=== PATIENT | female | born 1950 | race Asian ===

== ENCOUNTER 2016-07-29 13:39 | Outpatient (CLI) | payer OTHER | END 2016-07-29 18:17 | disposition home or self-care (01) | LOC: SMA 13:39 | PROVIDERS: ATTEND Specialist | DX: Z12.31 Encounter for screening mammogram for malignant neoplasm of breast (principal); N95.0 Postmenopausal bleeding | CPT/HCPCS: 76830; 76857; 77067; G0202 ==

== ENCOUNTER 2016-08-19 06:00 | Day surgery (SDC) | payer OTHER ==
[2016-08-15 15:56] LABS: ALBUMIN 4.2 g/dL (3.4-4.8); CREATININE 0.71 mg/dL (0.55-1.30); POTASSIUM 3.4 mmol/L (3.5-5.1); TOTAL BILIRUBIN 0.5 mg/dL (0.0-1.0); TOTAL PROTEIN, SERUM 8.4 g/dL (6.4-8.3)
[2016-08-15 16:01] LABS: BILIRUBIN,URINE NEGATIVE (NEGATIVE); BLOOD, URINE 1+ (NEGATIVE); CLARITY/URINE HAZY (CLEAR); COLOR,URINE YELLOW (YELLOW); GLUCOSE,URINE NEGATIVE (NEGATIVE); KETONES,URINE NEGATIVE (NEGATIVE); LEUKOCYTE ESTERASE ,URINE NEGATIVE (NEGATIVE); NITRITE, URINE NEGATIVE (NEGATIVE); PROTEIN URINE NEGATIVE (NEGATIVE)
[2016-08-15 16:03] LABS: BASOPHILS # (AUTO) 0.1 K/uL (0.0-0.2); EOSINOPHILS # (AUTO) 0.3 K/uL (0.0-0.4); EOSINOPHILS % (AUTO) 3.5 % (0.0-4.0); HEMATOCRIT 42.3 % (36-48); LYMPHOCYTES # (AUTO) 3.6 K/uL (1.0-5.5); LYMPHOCYTES % (AUTO) 42.7 % (20.5-51.5); MEAN CORPUSCULAR HEMOGLOBIN 31 pg (27-31); MEAN CORPUSCULAR HGB CONC 33 % (32-36); MEAN CORPUSCULAR VOLUME 94 fL (79.0-98.0); MONOCYTES # (AUTO) 0.6 K/uL (0.0-1.0); MONOCYTES % (AUTO) 6.9 % (1.7-9.3); NEUTROPHILS # (AUTO) 3.7 K/uL (1.8-7.7); NEUTROPHILS % (AUTO) 45.9 % (40.0-70.0); PLATELET COUNT (AUTO) 329 K/uL (130-430); RED BLOOD CELL COUNT(AUTO) 4.53 MIL/uL (4.2-6.2); RED CELL DISTRIBUTION WIDTH 13.1 % (9.0-15.0); WHITE BLOOD COUNT (AUTO) 8.3 K/uL (4.8-10.8)
[2016-08-15 16:20] LABS: BACTERIA,URINE FEW /HPF (None Seen); MUCUS,URINE None Seen /LPF (None Seen); URINE AMORPHOUS PHOSPHATES 3+ /HPF (None Seen); WBC,URINE NONE SEEN /HPF (0-3)
[~2016-08-19] VITALS: Ht 154.9 cm; Wt 48.5 kg
[2016-08-19] MEDS ORDERED: CEFAZOLIN SOD 1 GM/ ISO 50 ML PREMIX IV ONE (07:15)
[2016-08-19] MEDS ORDERED: LR 1,000 ML IV ONE (08:08)
[2016-08-19] MEDS ORDERED: ONDANSETRON HCL 4 MG/2 ML VIAL IVP PRN ×2 (08:15)
[2016-08-19] MEDS ORDERED: ePHEDrine sulfate 50 MG/ML VIAL IVP PRN (08:15)
[2016-08-19] MEDS ORDERED: NALBUPHINE HCL 10 MG/ML AMP IVP PRN (08:15)
[2016-08-19] MEDS ORDERED: fentaNYL CITRATE/PF 100 MCG/2 ML AMP IVP PRN (08:15)
[2016-08-19] MEDS ORDERED: NALOXONE HCL 0.4 MG/ML AMP (NARCAN) IVP PRN (08:15)
[2016-08-19] MEDS ORDERED: DIPHENHYDRAMINE INJ 50 MG/ML VIAL IVP PRN (08:15)
[2016-08-19 10:06] VITALS: BP_SYST 143
[2016-08-19] MEDS ORDERED: LR 1,000 ML IV.SOLN IV ONE (14:00)
[2016-08-19] MEDS ORDERED: PROPOFOL 200MG/ 20ML VIAL (DIPRIVAN) IV ONE (14:00)
[2016-08-19] MEDS ORDERED: fentaNYL CITRATE/PF 100 MCG/2 ML AMP ONE (14:00)
[2016-08-19] MEDS ORDERED: DEXAMETHASONE SOD PHOSPHATE 4 MG/ML VIAL ONE (14:00)
[2016-08-19] MEDS ORDERED: METOCLOPRAMIDE HCL 10 MG/2 ML VIAL ONE (14:00)
[2016-08-19] MEDS ORDERED: CEFAZOLIN 1 GM IVPB PREMIX 50 ML IV ONE (14:00)
[2016-08-19] MEDS ORDERED: NS IRRIG SOLN 1000 ML IR ONE (14:00)
[2016-08-19] MEDS ORDERED: SEVOFLURANE 15 MIN GAS INH ONE (14:00)
[2016-08-19] MEDS ORDERED: MIDAZOLAM HCL 5 MG/5 ML VIAL ONE (14:00)
== END 2016-08-19 10:45 | disposition home or self-care (01) ==
LOC: SMU 06:00 → SDS 06:00
PROVIDERS: ATTEND Specialist
DX: D25.9 Leiomyoma of uterus, unspecified (principal); I34.1 Nonrheumatic mitral (valve) prolapse; I10 Essential (primary) hypertension; F17.200 Nicotine dependence, unspecified, uncomplicated
CPT/HCPCS: 36415; 58561; 71020; 80053; 81000; 82306; 82465; 84703; 85025; 88305; C1819; J0690; J1100; J2250; J2704; J2765; J3010; J7120

== ENCOUNTER 2018-07-30 12:05 | Outpatient (CLI) | payer OTHER | END 2018-07-30 21:15 | disposition home or self-care (01) | LOC: SUS 12:05 | PROVIDERS: ATTEND Specialist | DX: R93.89 Abnormal findings on diagnostic imaging of other specified body structures (principal); N95.0 Postmenopausal bleeding | CPT/HCPCS: 76830-TC; 76857 ==

== ENCOUNTER 2018-09-22 06:00 | Day surgery (SDC) | payer OTHER ==
[2018-09-21 16:34] LABS: BILIRUBIN,URINE NEGATIVE (NEGATIVE); BLOOD, URINE NEGATIVE (NEGATIVE); CLARITY/URINE CLEAR (CLEAR); COLOR,URINE YELLOW (YELLOW); GLUCOSE,URINE NEGATIVE (NEGATIVE); KETONES,URINE NEGATIVE (NEGATIVE); LEUKOCYTE ESTERASE ,URINE NEGATIVE (NEGATIVE); NITRITE, URINE NEGATIVE (NEGATIVE); PH,URINE 5.5 (5.0-8.0); PROTEIN URINE NEGATIVE (NEGATIVE); UROBILINOGEN,URINE 0.2 (0.2-1.0)
[2018-09-21 16:37] LABS: BASOPHILS # (AUTO) 0.1 K/uL (0.0-0.2); BASOPHILS % (AUTO) 1.2 % (0.0-2.0); EOSINOPHILS # (AUTO) 0.5 K/uL (0.0-0.4); EOSINOPHILS % (AUTO) 5.4 % (0.0-4.0); HEMATOCRIT 40.7 % (36-48); HEMOGLOBIN 13.5 g/dL (12.0-16.0); LYMPHOCYTES # (AUTO) 2.4 K/uL (1.0-5.5); LYMPHOCYTES % (AUTO) 25.3 % (20.5-51.5); MEAN CORPUSCULAR HEMOGLOBIN 31 pg (27-31); MEAN CORPUSCULAR HGB CONC 33 % (32-36); MEAN CORPUSCULAR VOLUME 94 fL (79.0-98.0); MONOCYTES # (AUTO) 0.8 K/uL (0.0-1.0); MONOCYTES % (AUTO) 8.2 % (1.7-9.3); NEUTROPHILS # (AUTO) 5.7 K/uL (1.8-7.7); NEUTROPHILS % (AUTO) 59.9 % (40.0-70.0); PLATELET COUNT (AUTO) 315 K/uL (130-430); RED BLOOD CELL COUNT(AUTO) 4.35 MIL/uL (4.2-6.2); RED CELL DISTRIBUTION WIDTH 14.3 % (9.0-15.0); WHITE BLOOD COUNT (AUTO) 9.5 K/uL (4.8-10.8)
[~2018-09-22] VITALS: Ht 154.9 cm; Wt 54.9 kg
[2018-09-22] MEDS ORDERED: ONDANSETRON HCL 4 MG/2 ML VIAL IVP PRN ×2 (08:30→10:30)
[2018-09-22] MEDS ORDERED: fentaNYL CITRATE/PF 100 MCG/2 ML AMP IVP PRN ×2 (08:30)
[2018-09-22] MEDS ORDERED: ROPIVACAINE 0.2% (NAROPIN) PF SOLUTION 100 ML BOTTLE ONE (10:00)
[2018-09-22] MEDS ORDERED: GLYCOPYRROLATE 0.2 MG/ML VIAL ONE (10:00)
[2018-09-22] MEDS ORDERED: LIDOCAINE 2%, 20 ML MDV ONE (10:00)
[2018-09-22] MEDS ORDERED: DEXTROSE 50% JECT 50 ML DISP.SYRIN ONE (10:00)
[2018-09-22] MEDS ORDERED: NS 1000 ML IV.SOLN IV ONE (10:00)
[2018-09-22] MEDS ORDERED: PHENYLEPHRINE HCL 10 MG/ML VIAL (NEOSYNEPHRINE) ONE (10:00)
[2018-09-22] MEDS ORDERED: CEFAZOLIN 2 GM IVPB PREMIX 50 ML IV ONE (10:00)
[2018-09-22] MEDS ORDERED: ONDANSETRON HCL 4 MG/2 ML VIAL ONE (10:00)
[2018-09-22] MEDS ORDERED: fentaNYL CITRATE/PF 100 MCG/2 ML AMP ONE (10:00)
[2018-09-22] MEDS ORDERED: PROPOFOL 200MG/ 20ML VIAL (DIPRIVAN) IV ONE (10:00)
[2018-09-22] MEDS ORDERED: NS IRRIG SOLN 1000 ML IR ONE (10:00)
[2018-09-22] MEDS ORDERED: FUROSEMIDE 20 MG/2 ML VIAL ONE (10:00)
[2018-09-22] MEDS ORDERED: LR 1,000 ML IV.SOLN IV ONE (10:00)
[2018-09-22] MEDS ORDERED: SEVOFLURANE 15 MIN GAS INH ONE (10:00)
[2018-09-22] MEDS ORDERED: BUPIVACAINE /PF 0.25% 30 ML VIAL INJ ONE (10:00)
[2018-09-22] MEDS ORDERED: WATER FOR IRRIGATION,STERILE 1,000 ML IRRIG.SOLN IR ONE (10:00)
[2018-09-22] MEDS ORDERED: MIDAZOLAM HCL 5 MG/ML VIAL (VERSED) IV ONE (10:00)
[2018-09-22] MEDS ORDERED: BUPIVACAINE /PF 0.5% 30 ML VIAL ONE (10:00)
[2018-09-22] MEDS ORDERED: NEOSTIGMINE METHYLSULFATE 1 MG/ML, 10 ML VIAL ONE (10:00)
[2018-09-22] MEDS ORDERED: ROCURONIUM BROMIDE 10 MG/ML (ZEMURON) ONE (10:00)
[2018-09-22] MEDS ORDERED: LABETALOL 100 MG/ 20ML VIAL ONE (10:00)
[2018-09-22] MEDS ORDERED: hydrALAZINE HCL 20 MG/ML VIAL IVP ONE (10:15)
[2018-09-22] MEDS ORDERED: hydrALAZINE HCL 20 MG/ML VIAL ONE (10:17)
[2018-09-22] MEDS ORDERED: OXYCODONE/ACETAMINOPHEN 5-325 TABLET PO PRN ×2 (10:45)
[2018-09-22] MEDS ORDERED: HYDROcodone/ACETAMIN 5-325 MG TAB (NORCO/ VICODIN) PO PRN (10:45)
[2018-09-22 11:49] VITALS: BP_SYST 123
== END 2018-09-22 15:10 | disposition home or self-care (01) ==
LOC: SDS 06:00 → SMU 06:00 → SDS 15:10
PROVIDERS: ATTEND Specialist
DX: D25.1 Intramural leiomyoma of uterus (principal); D25.2 Subserosal leiomyoma of uterus; N83.299 Other ovarian cyst, unspecified side; Z88.0 Allergy status to penicillin; Z79.899 Other long term (current) drug therapy; Z98.890 Other specified postprocedural states
CPT/HCPCS: 36415; 58552; 71046; 81003; 85025; 88307; 93005; C1727; J0360; J0690; J1940; J2001; J2250; J2370; J2405; J2704; J2710; J2795; J3010; J3490 ×4; J7030; J7120; E0190

== ENCOUNTER 2020-02-22 19:56 | Emergency (ER) | payer OTHER, MEDICARE ==
[~2020-02-22] VITALS: Ht 154.9 cm; Wt 54.4 kg
--- NOTE | 2020-02-22 20:00 | NUR ---
Note gabriel in EDM - 02/22/20 at 2009 by [email or web address] [address]Patient to [facility] for evaluation. Side rails up.
--- NOTE | 2020-02-22 20:00 | NUR ---
Patient to ER bed 01 to gown for evaluation. Side rails up.
--- NOTE | 2020-02-22 20:03 | NUR ---
ER Dr. FLORES at bedside examining patient.
[2020-02-22 20:09] VITALS: BP_SYST 191
--- NOTE | 2020-02-22 20:10 | NUR ---
Pt c/o R knee pain/ swelling after twisting knee x today. Pt R knee appears to have swelling, pt cannot fully extend R knee. Rates pain /10.
[2020-02-22] MEDS ORDERED: KETOROLAC TROMETHAMINE 60 MG/2 ML VIAL IM ONE (20:15)
--- NOTE | 2020-02-22 20:30 | NUR ---
Xray at bedside.
--- NOTE | 2020-02-22 20:50 | NUR ---
Pt given knee immbolizer and crutches. Pt crutches adjusted to comfort level.
[2020-02-22 21:15] VITALS: BP_SYST 191
--- NOTE | 2020-02-22 21:15 | NUR ---
Patient given written and verbal discharge instructions and verbalizes understanding. ER MD discussed with patient the results and treatment provided. Patient in stable condition. ID arm band removed. Patient educated on pain management and to follow up with PMD. Opportunity for questions provided and answered. Medication side effect fact sheet provided.
== END 2020-02-22 21:15 | disposition home or self-care (01) ==
LOC: SED 19:56
DX: S83.8X1A Sprain of other specified parts of right knee, initial encounter (principal); Z88.8 Allergy status to other drugs, medicaments and biological substances; Z90.710 Acquired absence of both cervix and uterus; X50.1XXA Overexertion from prolonged static or awkward postures, initial encounter; Y93.89 Activity, other specified; Y92.89 Other specified places as the place of occurrence of the external cause; Y99.8 Other external cause status
CPT/HCPCS: 73564; 96372; 99283; J1885